=== PATIENT | female | born 1935 | race Caucasian/White ===

== ENCOUNTER 2017-05-15 10:43 | Inpatient (IN) | payer OTHER ==
[~2017-05-15] VITALS: Ht 172.7 cm; Wt 82.6 kg
[~2017-05-15 10:43] MED LIST: ACEON4 MG PO; ACETAMINOPHEN325 M1 PO; ADULT LOW DOSE81 MG PO; BENADRYL25 MG PO; CARDIZEM CD240 MG PO; CEFTIN500 MG PO; COUMADIN 5 MG TA5 M1 PO; DOXYCYCLINE HY100 M3 PO; ENOXAPARIN100 MG/11 SUBQ; IBUPROFEN 200200 M1 PO; IBUPROFEN200 M2 PO; JANTOVEN5 MG PO; LIPITOR20 MG PO; MEDROLDOSEPACK; MOBIC15 MG PO; MULTAQ400 MG PO; NITROGLYCERIN0.4 MG SL; NORCO 7.5-3251 EACH PO; PAXIL20 MG PO; PERCOCET 5-3251 EACH PO; PERINDOPRIL ERBU2 MG PO; PLAVIX 75 MG TA75 MG PO; PRADAXA150 MG PO; PREDNISONE 10 M10 M1 PO; PRILOSEC 20 MG20 MG PO; PRILOSEC OTC; SERTRALINE HCL50 MG PO; SIMVASTATIN40 MG PO; SYMBICORT160 MCG/4. INH; TOPROL XL25 MG PO; TOPROL XL50 MG PO; TRAZODONE HCL50 MG PO; TUMS E.S.750 MG PO; TUMS X-STR300 MG PO; VENLAFAXIN37.5 MG/1 PER TUBE; VENTOLIN HFA INH8 GM IH; VITAMIN D35000 UNI1 PO; ZOFRAN ODT4 MG PO
[2017-05-15 10:47] VITALS: BP 102/60
[2017-05-15 11:55] LABS: ANION GAP 4 mmol/L (7-16); BUN 15 mg/dL (7-18); CALCIUM 9.4 mg/dL (8.5-10.1); CHLORIDE 102 mmol/L (98-107); CO2 30 mmol/L (21-32); CREATININE 0.9 mg/dL (0.6-1.0); GLUCOSE 115 mg/dL (74-106); POTASSIUM 4.9 mmol/L (3.5-5.1); SODIUM 136 mmol/L (136-145)
[2017-05-15 11:59] LABS: ALBUMIN 2.7 g/dL (3.4-5.0); ALKALINE PHOSPHATASE 104 U/L (46-116); DIRECT BILIRUBIN < 0.1 mg/dL (<0.1-0.3); SGOT 28 U/L (15-37); SGPT 27 U/L (30-65); TOTAL BILIRUBIN 0.4 mg/dL (<0.1-1.0); TOTAL PROTEIN 7.4 g/dL (6.4-8.2)
[2017-05-15 12:02] LABS: INR 2.3; PROTIME 23.4 Seconds (9.3-11.4)
[2017-05-15 12:07] LABS: URINE BILIRUBIN NEGATIVE (Negative); URINE BLOOD NEGATIVE (Negative); URINE COLOR YELLOW; URINE GLUCOSE-RANDOM* NEGATIVE (Negative); URINE KETONES NEGATIVE (Negative); URINE NITRITE NEGATIVE (Negative); URINE PROTEIN (DIPSTICK) NEGATIVE (Negative); URINE UROBILINOGEN 0.2 E.U./dl (0.2-1.0)
[2017-05-15 12:54] LABS: ABSOLUTE NEUTROPHILS 12.1 thou/uL (1.4-8.2); BASOPHILS 0.6 % (0.0-2.0); EOSINOPHILS 0.8 % (0.0-3.0); HEMATOCRIT 41.8 % (37.0-47.0); HEMOGLOBIN 13.8 gm/dL (12.0-15.0); LYMPHOCYTES 10.9 % (24.0-44.0); MCH 29.7 pg (26.0-34.0); MCV 89.8 fL (80.0-100.0); MONOCYTES 9.9 % (1.0-8.0); PLATELET COUNT 531 thou/uL (150-400); POLYS 77.8 % (36.0-66.0); RBC 4.66 mil/uL (4.20-5.00); RDW 17.1 % (10.5-14.5); WBC 15.5 thou/uL (4.0-11.0)
[2017-05-15 12:57] LABS: MANUAL DIFF NO
[2017-05-15 17:40] VITALS: BP 110/45
[2017-05-15 19:20] VITALS: BP 122/54
[2017-05-15 23:35] VITALS: BP 119/65
[2017-05-16 03:31] VITALS: BP 102/60
[2017-05-16 06:08] LABS: HEMATOCRIT 35.8 % (37.0-47.0); MCH 30.2 pg (26.0-34.0); MCHC 33.4 g/dL (28.0-37.0); MCV 90.2 fL (80.0-100.0); RBC 3.97 mil/uL (4.20-5.00); RDW 17.1 % (10.5-14.5); WBC 10.7 thou/uL (4.0-11.0)
[2017-05-16 06:22] LABS: INR 2.1; PROTIME 21.4 Seconds (9.3-11.4)
[2017-05-16 06:26] LABS: CALCIUM 9.5 mg/dL (8.5-10.1); CREATININE 0.9 mg/dL (0.6-1.0)
[2017-05-16 06:47] LABS: POTASSIUM 3.9 mmol/L (3.5-5.1)
[2017-05-16 08:00] VITALS: BP 122/58
[2017-05-16 16:00] VITALS: BP 113/47
[2017-05-16 20:15] VITALS: BP 118/58
[2017-05-17 04:48] LABS: INR 2.5
[2017-05-17 05:15] VITALS: BP 116/50
[2017-05-17 07:41] LABS: HEMATOCRIT 34.9 % (37.0-47.0); HEMOGLOBIN 11.5 gm/dL (12.0-15.0); MCH 30.1 pg (26.0-34.0); MCHC 32.9 g/dL (28.0-37.0); MCV 91.4 fL (80.0-100.0); RBC 3.81 mil/uL (4.20-5.00); RDW 17.1 % (10.5-14.5); WBC 10.1 thou/uL (4.0-11.0)
[2017-05-17 08:55] VITALS: BP 109/53
[2017-05-17] MEDS ORDERED: XANAX1 MG PO (12:45)
[2017-05-17] MEDS ORDERED: PREDNISONE 10 M10 MG PO (12:59)
[2017-05-17] MEDS ORDERED: ESCITALOPRAM OX20 MG PO (12:59)
[2017-05-17] MEDS ORDERED: AMBIEN 5 MG TABL5 M1 PO (13:01)
[2017-05-17] MEDS ORDERED: METHADONE HCL5 MG PO (13:02)
[2017-05-17 16:56] VITALS: BP 102/44
[2017-05-17 19:16] VITALS: BP 109/58
[2017-05-18 03:40] VITALS: BP 131/59
[2017-05-18 06:03] LABS: PROTIME 38.6 Seconds (9.3-11.4)
[2017-05-18 06:45] LABS: INR 3.9
[2017-05-18 07:22] VITALS: BP 103/91
[2017-05-18 16:00] VITALS: BP 112/53
[2017-05-18 19:26] VITALS: BP 106/51
[2017-05-19 03:49] VITALS: BP 130/65
[2017-05-19 06:40] LABS: HEMOGLOBIN 11.9 gm/dL (12.0-15.0); MCH 29.6 pg (26.0-34.0); MCHC 32.3 g/dL (28.0-37.0); MCV 91.7 fL (80.0-100.0); RBC 4.03 mil/uL (4.20-5.00); RDW 17.3 % (10.5-14.5); WBC 12.7 thou/uL (4.0-11.0)
[2017-05-19 06:56] LABS: CALCIUM 8.9 mg/dL (8.5-10.1); CREATININE 0.8 mg/dL (0.6-1.0); POTASSIUM 4.2 mmol/L (3.5-5.1)
[2017-05-19 07:10] LABS: INR 4.7; PROTIME 46.9 Seconds (9.3-11.4)
[2017-05-19 07:30] VITALS: BP 113/44
[2017-05-19] MEDS ORDERED: LOPRESSOR25 PO (12:38)
[2017-05-19] MEDS ORDERED: AUGMENTIN 875-1 EACH PO (12:40)
[2017-05-19 13:07] VITALS: BP 113/44
== END 2017-05-19 14:19 | disposition home or self-care (01) | DRG 871 ==
LOC: ER 10:43 → EROBS 13:50 → 3W 13:50 → ENTRNSPT 05-19 14:02 → EDTRNSPTSTS 05-19 14:09 → 3W 05-19 14:19
PROVIDERS: Emergency Medicine; Internal Medicine
DX: A41.9 Sepsis, unspecified organism (principal); E43 Unspecified severe protein-calorie malnutrition; I48.92 Unspecified atrial flutter; K57.32 Diverticulitis of large intestine without perforation or abscess without bleeding; I25.10 Atherosclerotic heart disease of native coronary artery without angina pectoris; J44.9 Chronic obstructive pulmonary disease, unspecified; K59.09 Other constipation; M19.90 Unspecified osteoarthritis, unspecified site; J84.10 Pulmonary fibrosis, unspecified; F32.9 Major depressive disorder, single episode, unspecified; F41.1 Generalized anxiety disorder; I10 Essential (primary) hypertension; E78.00 Pure hypercholesterolemia, unspecified; Z95.1 Presence of aortocoronary bypass graft; Z95.5 Presence of coronary angioplasty implant and graft; Z87.891 Personal history of nicotine dependence; Z79.01 Long term (current) use of anticoagulants; Z79.82 Long term (current) use of aspirin; Z86.010 Personal history of colon polyps; Z79.899 Other long term (current) drug therapy; Z88.5 Allergy status to narcotic agent; Z88.8 Allergy status to other drugs, medicaments and biological substances
CPT/HCPCS: 10879